=== PATIENT | female | born 2000 | race Hispanic/Latino ===

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

== ENCOUNTER 2019-02-05 15:21 | Emergency (ER) | payer OTHER | END 2019-02-05 16:55 | disposition home or self-care (01) | LOC: EDH 15:21 | DX: S92.514A Nondisplaced fracture of proximal phalanx of right lesser toe(s), initial encounter for closed fracture (principal); W22.8XXA Striking against or struck by other objects, initial encounter; Y93.89 Activity, other specified; Y92.89 Other specified places as the place of occurrence of the external cause; Y99.8 Other external cause status | CPT/HCPCS: 73660 ==

== ENCOUNTER 2019-08-29 21:32 | Emergency (ER) | payer OTHER | END 2019-08-29 23:02 | disposition home or self-care (01) | LOC: EDH 21:32 | DX: S40.022A Contusion of left upper arm, initial encounter (principal); V59.49XA Driver of pick-up truck or van injured in collision with other motor vehicles in traffic accident, initial encounter; Y93.89 Activity, other specified; Y92.89 Other specified places as the place of occurrence of the external cause; Y99.8 Other external cause status | CPT/HCPCS: 73060 ==

== ENCOUNTER 2019-10-17 11:05 | Emergency (ER) | payer OTHER ==
[2019-10-17] MEDS ORDERED: PROMETHAZINE HCL 25 MG/ML 1ML AMPULE IM ONE (12:40)
== END 2019-10-17 12:56 | disposition home or self-care (01) ==
LOC: EDH 11:05
DX: S83.411A Sprain of medial collateral ligament of right knee, initial encounter (principal); W51.XXXA Accidental striking against or bumped into by another person, initial encounter; Y93.83 Activity, rough housing and horseplay; Y92.89 Other specified places as the place of occurrence of the external cause; Y99.8 Other external cause status
CPT/HCPCS: 73562; 96372; 99284; J2550

== ENCOUNTER 2020-10-08 12:02 | Day surgery (SDC) | payer OTHER ==
[~2020-10-08] VITALS: Ht 162.6 cm; Wt 65.9 kg
[2020-10-08] VITALS (13 sets, daily range): BP systolic 115–142; BP diastolic 70–90
[2020-10-08] MEDS ORDERED: LACTATED RINGERS 1000ML 0 ML IV ONE (12:52)
[2020-10-08] MEDS ORDERED: SUCCINYLCHOLINE 200MG/10ML SYR ONE (13:01)
[2020-10-08] MEDS ORDERED: LIDOCAINE PF 2% 5ML ABBOJECT ONE (13:01)
[2020-10-08] MEDS ORDERED: ROCURONIUM 10MG/1ML SYR 10 MG/ML ML ONE (13:02)
[2020-10-08] MEDS ORDERED: ONDANSETRON HCL 4 MG/2 ML VIAL ONE (13:02)
[2020-10-08] MEDS ORDERED: MIDAZOLAM HCL 1 MG/ML 2ML VIAL ONE (13:02)
[2020-10-08] MEDS ORDERED: PROPOFOL 10 MG/ML 20ML VIAL IV ONE (13:02)
[2020-10-08] MEDS ORDERED: FENTANYL CITRATE PF 50 MCG/1 ML 2ML VIAL ONE ×2 (13:05→18:23)
[2020-10-08 13:06] LABS: BASOPHILS % (AUTO) 0.4 % (0.0-5.0); EOSINOPHILS % (AUTO) 0.7 % (0.0-8.0); MEAN CORPUSCULAR HGB CONC 33.2 g/dL (32.0-36.0); MEAN CORPUSCULAR VOLUME 84.4 fL (80-100); MONOCYTES % (AUTO) 6.9 % (3.0-13.0); NEUTROPHILS % (AUTO) 72.6 % (40.0-77.0); PLATELET COUNT (AUTO) 243 K/uL (130-400); RED CELL DISTRIBUTION WIDTH 12.2 % (11.0-15.5); WHITE BLOOD COUNT (AUTO) 8.1 K/uL (4.8-10.8)
[2020-10-08] MEDS ORDERED: PREN1TAB63 PO (13:28)
[2020-10-08] MEDS ORDERED: LACTATED RINGERS 1000ML 1,000 ML IV ONE ×2 (13:34→14:52)
[2020-10-08] MEDS ORDERED: CEFAZOLIN SODIUM 1 GM VIAL IVP SCH (13:45)
[2020-10-08] MEDS ORDERED: OXYTOCIN 10 USP UNITS/ML ONE (18:22)
== END 2020-10-08 19:20 | disposition home or self-care (01) ==
LOC: DAH 12:02
PROVIDERS: ATTEND Obstetrics & Gynecology
DX: O03.4 Incomplete spontaneous abortion without complication (principal); Z20.828 Contact with and (suspected) exposure to other viral communicable diseases; Z83.3 Family history of diabetes mellitus; Z82.49 Family history of ischemic heart disease and other diseases of the circulatory system; Z79.899 Other long term (current) drug therapy
CPT/HCPCS: 36415; 59812; 85025; 86850; 86900; 86901; 87426; A4215; A4221; A4222; A4223 ×2; A4344; A4351; A4510; A4600; A4649; A4663; A4930; A7002; J0330; J2001; J2250; J2405; J2590; J2704; J3010 ×2; J7030; J7120 ×3